=== PATIENT | male | born 1935 | race Caucasian/White ===

== ENCOUNTER → 2019-09-18 14:55 | Outpatient (CLI) | payer MEDICARE ==
[2019-09-18 15:38] LABS: BASOPHILS 0.2 % (0-2); EOSINOPHILS 5.2 % (0-7); IMMATURE GRANULOCYTES 0.2 % (0-5); LYMPHOCYTES 22.3 % (15-50); MCH 30.6 pg (26.0-34.0); MCHC 31.4 g/dL (31.0-37.0); MCV 97.5 fL (80.0-100.0); MEAN PLATELET VOLUME 9.2 fL (7.4-10.4); NEUTROPHILS 62.1 % (40-80); PLATELET COUNT 250 10x3/uL (130-400); RBC 3.59 10x6/uL (4.20-6.10); RDW 14.3 % (11.5-14.5); WBC 4.2 10x3/uL (4.8-10.8)
[2019-09-18 15:47] LABS: ANION GAP 15.9 mmol/L (8-16); CALCIUM 8.7 mg/dL (8.5-10.1); CARBON DIOXIDE 20.5 mmol/L (21.0-32.0); CREATININE - SERUM 1.4 mg/dL (0.6-1.3); POTASSIUM - SERUM 4.4 mmol/L (3.5-5.1)
== END | disposition home or self-care (01) ==
LOC: D.LABREF 14:55
PROVIDERS: ATTEND Family Medicine
DX: G93.41 Metabolic encephalopathy (principal); J18.9 Pneumonia, unspecified organism

== ENCOUNTER → 2019-10-02 13:49 | Outpatient (CLI) | payer MEDICARE ==
[2019-10-02 14:17] LABS: BASOPHILS 0 % (0-2); EOSINOPHILS 3.3 % (0-7); HEMATOCRIT 37.2 % (42.0-54.0); HEMOGLOBIN 11.8 g/dL (13.5-17.5); IMMATURE GRANULOCYTES 0.3 % (0-5); LYMPHOCYTES 21.6 % (15-50); MCH 30.6 pg (26.0-34.0); MCHC 31.7 g/dL (31.0-37.0); MCV 96.6 fL (80.0-100.0); MEAN PLATELET VOLUME 9.7 fL (7.4-10.4); MONOCYTES 11.8 % (2-11); PLATELET COUNT 211 10x3/uL (130-400); RBC 3.85 10x6/uL (4.20-6.10); RDW 13.7 % (11.5-14.5); WBC 3.9 10x3/uL (4.8-10.8)
[2019-10-02 14:25] LABS: ANION GAP 14.5 mmol/L (8-16); CALCIUM 8.7 mg/dL (8.5-10.1); CARBON DIOXIDE 23.2 mmol/L (21.0-32.0); CREATININE - SERUM 1.3 mg/dL (0.6-1.3); POTASSIUM - SERUM 4.7 mmol/L (3.5-5.1)
== END | disposition home or self-care (01) ==
LOC: D.LABREF 13:49
PROVIDERS: ATTEND Family Medicine
DX: G93.41 Metabolic encephalopathy (principal); N18.3 Chronic kidney disease, stage 3 (moderate)